=== PATIENT | male | born 1965 | race African-American/Black ===

== ENCOUNTER 2025-06-09 06:26 | Emergency (ER) | payer OTHER, SELFPAY ==
[2025-06-09 06:42] VITALS: BP 128/85; PULSE 84; TEMP 36.8; O2SAT 98; BMI 25.1
--- NOTE | 2025-06-09 06:52 | PC.NURSE ---
this patient complains of right lower back pain onset 1 day ago while sleeping. this patient denies any recent falls, injury or trauma to cause this right lower back pain this patient voices no other complaints, needs and shows no signs of distress
--- NOTE | 2025-06-09 07:15 | ED_ITS ---
HPI HPI - General Adult General Chief complaint: Urogenital-Male Stated complaint: R SIDE BACK PAIN Time Seen by Provider: 06/09/25 07:04 Source: patient Mode of arrival: walk-in Limitations: no limitations History of Present Illness HPI narrative: 60 male presents for right flank pain. Began yesterday and he has been vomiting. He thought he was constipated so he took some magnesium citrate but afterwards he vomited. No history of kidney stones and there was no injury. No gross hematuria or dysuria. The pain has moved from his right flank and he has got no left-sided pain. Related Data Previous Rx's ?Medication ?Instructions ?Recorded acetaminophen 300 mg-codeine 30 mg 1 tab PO Q6H PRN pa in 5 days #20 06/09/25 tablet tabs ondansetron 4 mg disintegrating 4 mg PO Q6H PRN nausea and 06/09/25 tablet vomiting #20 tabs Allergies Allergy/AdvReac Type Severity Reaction Status Date / Time No Known Drug Allergies Allergy Verified 06/09/25 06:47 Opioid HPI Opioid Management Most Recent Opioid Data: Last Pain Scale 7 Today, 09:14 Last ED Pain Assessment Today, 08:38 Last MAR Pain Assessment Today, 07:34 Review of Systems ROS Narrative A ten point review of systems is negative except as noted above. Exam Narrative Exam Narrative: Nurses note and vital signs reviewed and patient is not hypoxic. General: The patient appears uncomfortable. Frequently moving around on the cart. Skin: Warm, dry, no pallor noted. There is no rash noted. Head: Normocephalic, atraumatic Eye: Normal conjunctiva, no drainage Ears, Nose, Mouth, and Throat: oral mucosa is moist. Nares patent. Cardiovascular: Regular Rate and Rhythm Respiratory: Patient is in no distress, no accessory muscle use, lungs are clear to auscultation, no wheezing, rales or rhonchi Back: No bruise or rash or focal area of tenderness to palpation GI: Soft and nontender and nondistended Musculoskeletal: The patient has no evidence of calf tenderness, no pitting edema, symmetrical pulses noted bilaterally Neurological: A&O, normal speech Psychiatric: Cooperative Constitutional Vital Signs, click to edit/add: Last Vital Signs Temp 98.2 F 06/09/25 06:42 Pulse 63 06/09/25 08:15 Resp 16 06/09/25 08:15 BP 131/82 06/09/25 08:15 Pulse Ox 99 06/09/25 08:15 O2 Del Method Room Air 06/09/25 06:42 Course Vital Signs Vital signs: Vital Signs Temperature 98.2 F 06/09/25 06:42 Pulse Rate 84 06/09/25 06:42 Respiratory Rate 20 06/09/25 06:42 Blood Pressure 128/85 06/09/25 06:42 Pulse Oximetry 98 06/09/25 06:42 Oxygen Delivery Method Room Air 06/09/25 06:42 Temperature 98.2 F 06/09/25 06:42 Pulse Rate 63 06/09/25 08:15 Respiratory Rate 16 06/09/25 08:15 Blood Pressure 131/82 06/09/25 08:15 Pulse Oximetry 99 06/09/25 08:15 Oxygen Delivery Method Room Air 06/09/25 06:42 Medical Decision Making MDM Narrative Medical decision making narrative: His workup is negative. CAT scan suggest the possibility of pancreatitis but h is amylase and lipase are normal and he has no pain in the typical area for pancreatitis. He seems to be feeling improved and was discharged home on Tylenol 3 and Zofran. Treatment diagnosis and follow-up were discussed with the patient. Differential Diagnosis Differential Diagnosis: Kidney stone, constipation, UTI, muscle strain Lab Data Lab results reviewed: Yes I reviewed the patient's lab results Labs: Lab Results 06/09/25 06/09/25 Range/Units 07:25 08:08 WBC 12.0 H (4.0-11.0) 10^3/uL RBC 5.08 (4.70-6.10) 10^6/uL Hgb 15.4 (14.0-18.0) g/dL Hct 45.2 (42.0-54.0) % MCV 89.0 (80.0-94.0) fL MCH 30.3 (25.9-34.0) pg MCHC 34.1 (29.9-35.2) g/dL RDW 13.2 (11.0-15.0) % Plt Count 319 (150-450) 10^3/uL MPV 8.4 L (9.5-13.5) fL Neut % (Auto) 79.8 H (43.0-75.0) % Lymph % (Auto) 12.5 L (20.5-60.0) % [place] % (Auto) 6.8 (1.7-12.0) % Eos % (Auto) 0.2 L (0.9-7.0) % Baso % (Auto) 0.3 (0.2-2.0) % Neut # (Auto) 9.6 H (1.4-6.5) 10^3/uL Lymph # (Auto) 1.5 (1.2-3.8) 10^3/uL [place] # (Auto) 0.8 (0.3-0.8) 10^3/uL Eos # (Auto) 0.0 (0.0-0.7) 10^3/uL Baso # (Auto) 0.0 (0.0-0.1) 10^3/uL Abs Immat Gran (auto) 0.05 H (0.00-0.03) 10^3/uL Imm/Tot Granulo (auto) 0.4 (0.0-0.5) % Sodium 138 (136-145) mmol/L Potassium 4.2 (3.5-5.1) mmol/L Chloride 99 (98-107) mmol/L Carbon Dioxide 30.6 (21.0-32.0) mmol/L Anion Gap 12.6 BUN 18.0 (7.0-18.0) mg/dL Creatinine 1.29 (0.70-1.30) mg/dL Est GFR ( Amer) >60 (>=60 mL/min/1.73m^2) Est GFR (Non-Af Amer) 56 L (>=60 mL/min/1.73m^2) BUN/Creatinine Ratio 14.0 Glucose 112 H (74-106) mg/dL Calcium 9.3 (8.5-10.1) mg/dL Total Bilirubin 1.0 (0.2-1.0) mg/dL Direct Bilirubin 0.2 (0.0-0.2) mg/dL AST 66 H (15-37) U/L ALT 59 (16-63) U/L Alkaline Phosphatase 82 (46-116) U/L Total Protein 8.0 (6.4-8.2) g/dL Albumin 3.6 (3.4-5.0) g/dL Globulin 4.4 g/dL Albumin/Globulin Ratio 0.8 Amylase 87 (25-115) U/L Lipase 29.0 (16.0-77.0) U/L Urine Color Dk. yellow (YELLOW) Urine Clarity Clear (CLEAR) Urine pH 7.5 (5.0-9.0) Ur Specific [place] 1.020 (1.005-1.025) Urine Protein Trace (NEG/TRACE) mg/dL Urine Glucose (UA) Negative (NEGATIVE) mg/dL Urine Ketones >=80 A (NEGATIVE) mg/dL Urine Occult Blood Negative (NEGATIVE) Urine Nitrite Negative (NEGATIVE) Urine Bilirubin Small A (NEGATIVE) Urine Urobilinogen 1.0 (0.2-1.0) EU/dL Ur Leukocyte Esterase Negative (NEGATIVE) Urine RBC 0-2 (0-2) #/HPF Urine WBC 0-2 A (NONE SEEN) #/HPF Ur Squamous Epith Cells Rare (NONE/RARE) #/LPF Urine Crystals None seen (None Seen) #/HPF Urine Bacteria Trace A (NONE SEEN) #/HPF Urine Casts None seen (NONE SEEN) #/LPF Urine Mucus Small A (NONE SEEN) Imaging Data CT scan - abdomen: Radiologist's impression: ITS Impressions Abdomen/Pelvis CT 06/09/25 08:56 IMPRESSION: NO OBSTRUCTIVE UROPATHY OR STONE DISEASE. APPARENT URINARY BLADDER WALL THICKENING AND MINOR PERIVESICAL STRANDING. THIS MAY RELATE TO INCOMPLETE DISTENTION HOWEVER CORRELATION IS SUGGESTED TO EXCLUDE CYSTITIS. PROSTATE HYPERTROPHY. MILD PANCREATIC DUCTAL DILATATION AND PERIPANCREATIC INFLAMMATION. CORRELATION WITH AMYLASE AND LIPASE IS RECOMMENDED TO ASSESS FOR POSSIBLE PANCREATITIS. DIVERTICULOSIS. Impression dictated by: Xena Mcarthur M.D. 06/09/2025 9:22 AM Dictation Location: [facility]ched[facility] Electronically authenticated by: [id number] Y Date: 06/09/2025 09:22 Discharge Plan Discharge Chief Complaint: Urogenital-Male Clinical Impression: Flank pain Patient Disposition: Home, Self-Care Time of Disposition Decision: 10:16 Condition: Good Mode of Transportation: Private Vehicle Prescriptions / Home Meds: New acetaminophen-codeine 300-30 mg tablet 1 tab PO Q6H PRN (Reason: pain) 5 Days Qty: 20 0RF ondansetron 4 mg tablet,disintegrating 4 mg PO Q6H PRN (Reason: nausea and vomiting) Qty: 20 0RF Print Language: Fijian Instructions: Flank Pain (ED) Referrals: Physician,Non-Staff, MD [Primary Care Provider] - 1 week
[2025-06-09 07:32] LABS: Hematocrit 45.2 % (42.0-54.0); Hemoglobin 15.4 g/dL (14.0-18.0); Immature Granulocytes Abs Auto 0.05 10^3/uL (0.00-0.03); Immature Granulocytes Pct Auto 0.4 % (0.0-0.5); Lymphocytes Absolute Auto 1.5 10^3/uL (1.2-3.8); Mean Corpuscular HGB Conc 34.1 g/dL (29.9-35.2); Mean Corpuscular Hemoglobin 30.3 pg (25.9-34.0); Mean Corpuscular Volume 89.0 fL (80.0-94.0); Platelet Count 319 10^3/uL (150-450); Red Blood Count 5.08 10^6/uL (4.70-6.10); White Blood Count 12.0 10^3/uL (4.0-11.0)
[2025-06-09] MEDS: 0.9 % SODIUM CHLORIDE 1,000 ML 1000 ML IV (07:33)
[2025-06-09] MEDS: MORPHINE SULFATE 4 MG/ML VIAL IV (07:34)
[2025-06-09 07:40] LABS: Anion Gap 12.6; Blood Urea Nitrogen 18.0 mg/dL (7.0-18.0); Calcium 9.3 mg/dL (8.5-10.1); Carbon Dioxide 30.6 mmol/L (21.0-32.0); Chloride 99 mmol/L (98-107); Estimated GFR (African America >60 (>=60 mL/min/1.73m^2); Estimated GFR (Non-African Ame 56 (>=60 mL/min/1.73m^2); Glucose 112 mg/dL (74-106); Potassium 4.2 mmol/L (3.5-5.1); Sodium 138 mmol/L (136-145)
[2025-06-09 08:15] VITALS: BP 131/82; PULSE 63; O2SAT 99
[2025-06-09 08:23] LABS: Glucose Urine UA NEGATIVE (NEGATIVE)
[2025-06-09 08:32] LABS: Cast Seen? NONE SEEN #/LPF (NONE SEEN); Crystals Seen? None Seen #/HPF (None Seen)
--- NOTE | 2025-06-09 08:56 | CT_ITS ---
The [address] [address] Patient Name: JERILYN MCKNIGHT MRN: [id number] date: 1965 Sex: M Assigned Patient Location: ER Current Patient Location: ER Accession/Order Number: [id number] Exam Date: 06/09/2025 08:52 Report Date: 06/09/2025 09:22 At the request of: HUNG ANDREA MD Procedure: CT abdomen pelvis wo con CT ABDOMEN AND PELVIS WITHOUT CONTRAST CLINICAL DATA: Right flank pain for the past 2 days. COMPARISON: None Spiral images were obtained through the abdomen and pelvis without contrast. This CT exam was performed using one or more following dose reduction techniques: Automated exposure control, adjustment of the mA and/or kV according to patient size, or use of iterative reconstruction technique. Limited cuts through the lung bases show minor atelectasis or scarring on the right. Evaluation of the intra-abdominal organs is slightly limited by the absence of contrast. No calcified gallstones are identified. The hepatic parenchyma is slightly heterogeneous. The spleen is unremarkable. There is slight thickening of the adrenal limbs. The pancreatic duct is mildly prominent. There is hazy density within the peripancreatic fat and adjacent retroperitoneum. Follow-up with laboratory data is suggested to assess for possible pancreatitis. No renal calculi or hydronephrosis are seen. There is atherosclerotic plaque at the aorta and iliac arteries. There are some retroperitoneal and mesenteric lymph nodes. No ascites is identified. A tiny umbilical hernia is visualized containing fat. The small bowel loops are not dilated. There is air and stool throughout the colon. Degenerative changes are present at the spine and SI joints. Images through the pelvis show no dilated small bowel. No appendiceal inflammation is seen. There is air and minimal stool at the distal colon. There are suspected cecal diverticula. A few sigmoid diverticula are also present. No associated active inflammation is seen. The prostate is enlarged. The urinary bladder is not well-distended and the wall appears slightly thickened. There is also minor perivesical stranding. No ascites is identified. CT/CT abdomen pelvis wo con IMPRESSION: NO OBSTRUCTIVE UROPATHY OR STONE DISEASE. APPARENT URINARY BLADDER WALL THICKENING AND MINOR PERIVESICAL STRANDING. THIS MAY RELATE TO INCOMPLETE DISTENTION HOWEVER CORRELATION IS SUGGESTED TO EXCLUDE CYSTITIS. PROSTATE HYPERTROPHY. MILD PANCREATIC DUCTAL DILATATION AND PERIPANCREATIC INFLAMMATION. CORRELATION WITH AMYLASE AND LIPASE IS RECOMMENDED TO ASSESS FOR POSSIBLE PANCREATITIS. DIVERTICULOSIS. Impression dictated by: Xena Mcarthur M.D. 06/09/2025 9:22 AM Dictation Location: [place] [address] Electronically authenticated by: [id number] Y Date: 06/09/2025 09:22
[2025-06-09] MEDS: KETOROLAC TROMETHAMINE 30 MG/ML VIAL IVP (09:10)
[2025-06-09 09:44] LABS: Alanine Aminotransferase 59 U/L (16-63); Albumin Globulin Ratio 0.8; Albumin Level 3.6 g/dL (3.4-5.0); Alkaline Phosphatase 82 U/L (46-116); Amylase 87 U/L (25-115); Aspartate Amino Transferase 66 U/L (15-37); Globulin 4.4 g/dL; Lipase 29.0 U/L (16.0-77.0); Total Protein 8.0 g/dL (6.4-8.2)
== END 2025-06-09 10:44 | disposition home or self-care (01) ==
PROVIDERS: Emergency Provider Emergency Medicine
DX: R10.9 Unspecified abdominal pain (principal)
CPT/HCPCS: 36415; 74176; 80048; 80076; 81001; 82150; 83690; 85025; 96361; 96374; 96375; 99284; J1885; J2270; J2405